=== PATIENT | male | born 1945 | race Two or more races ===

== ENCOUNTER 2019-03-10 22:23 | Inpatient (IN) | payer OTHER ==
[~2019-03-10] VITALS: Ht 167.6 cm; Wt 84.4 kg
--- NOTE | 2019-03-10 22:31 | NUR ---
"BIBPA FROM [facility] FOR [facility] ONSET AGGRESIVE BEHAVIOR HX OF DEMENTIA" PT TO BED 6, PT VERBALLY RESPONSIVE, PT ON MONITOR, VSS, PENDING MD VINCENT
--- NOTE | 2019-03-10 22:45 | NUR ---
CONDOM CATH IN PLACE. NO URINE COLELCTED AT THIS TIME
[2019-03-10 23:01] LABS: BASOPHILS % (AUTO) 0.6 % (0.0-2.0); EOSINOPHILS % (AUTO) 1.2 % (0.0-6.0); HEMATOCRIT 30 % (39-51); HEMOGLOBIN 10.3 g/dL (13.5-17.5); LYMPHOCYTES # (AUTO) 1.8 /CMM (0.8-4.8); LYMPHOCYTES % (AUTO) 26.7 % (20.0-44.0); MEAN CORPUSCULAR HGB CONC 35 g/dl (31.0-36.0); MEAN CORPUSCULAR VOLUME 90 fL (80-96); MONOCYTES # (AUTO) 0.7 /CMM (0.1-1.30); MONOCYTES % (AUTO) 9.7 % (2.0-12.0); NEUTROPHILS # (AUTO) 4.2 /CMM (1.8-8.9); NEUTROPHILS % (AUTO) 61.8 % (43.0-81.0); PLATELET COUNT (AUTO) 231 /CMM (150-450); RED BLOOD CELL COUNT(AUTO) 3.33 MIL/uL (4.5-6.0); WHITE BLOOD COUNT (AUTO) 6.8 K/uL (4.3-11.0)
[2019-03-10 23:10] LABS: CHLORIDE 103 mmol/L (98-107); GLUCOSE 182 mg/dL (74-106); POTASSIUM 3.2 mmol/L (3.5-5.1); SODIUM SERUM 136 mmol/L (136-145); UREA NITROGEN, BLOOD 23 mg/dL (7-18)
[2019-03-10 23:21] LABS: ACETAMINOPHEN 0 ug/ml (10-30); ALANINE AMINOTRANSFERASE 22 U/L (12-78); ALBUMIN 2.4 g/dL (3.4-5.0); ALCOHOL, BLOOD < 3 mg/dL (0-0); ALKALINE PHOSPHATASE 83 U/L (46-116); ASPARTATE AMINOTRANSFERASE 20 U/L (15-37); BILIRUBIN,DIRECT 0.1 mg/dL (0.0-0.2); BILIRUBIN,TOTAL 0.3 mg/dL (0.2-1.0); CALCIUM, SERUM 8.1 mg/dL (8.5-10.1); CARBON DIOXIDE 26 mmol/L (21-32); SALICYLATE 0.5 mg/dL (2.8-20.0); TOTAL PROTEIN, SERUM 5.9 g/dL (6.4-8.2)
[2019-03-11] MEDS ORDERED: POTASSIUM CHLORIDE 10 MEQ TABLET.SA PO ONE
--- NOTE | 2019-03-11 00:10 | NUR ---
rm 228
[2019-03-11] MEDS ORDERED: INSU100V11 SQ (00:29)
[2019-03-11] MEDS ORDERED: FAMO-131 PO (00:29)
[2019-03-11] MEDS ORDERED: INSU100V10 SQ (00:29)
[2019-03-11] MEDS ORDERED: CARV25TA PO (00:29)
[2019-03-11] MEDS ORDERED: HYDR-4076 PO (00:29)
[2019-03-11] MEDS ORDERED: FINA5TAB3 PO (00:29)
[2019-03-11] MEDS ORDERED: RISP1TAB7 PO (00:29)
[2019-03-11] MEDS ORDERED: ESCI5TAB PO (00:29)
[2019-03-11] MEDS ORDERED: DONE10TA11 PO (00:29)
[2019-03-11] MEDS ORDERED: MEMA5TAB PO (00:29)
--- NOTE | 2019-03-11 00:36 | NUR ---
REPORT GIVEN DA [facility] AT [facility] PT WILL BE TRANSPORTED TO [facility]
--- NOTE | 2019-03-11 00:36 | NUR ---
ROOM 220
--- NOTE | 2019-03-11 01:31 | NUR ---
PT TRANSPORTED TO [facility]IA [facility]
--- NOTE | 2019-03-11 02:29 | NUR ---
GPS/AUTO BODY CUSTOMIZER NOTES: RECEIVED 73 YR. OLD MALE ON A 5150 HOLD FOR GD. PT. IS CONFUSED. A/O X1. PT. EXPLAINED UNIT POLICY, PROCEDURES AND PROTOCOLS. PT. CAME IN TO UNIT WITHOUT BELONGINGS OR ANY CONTRABAND. SAFETY ENVIRONMENT OBSERVED AT ALL TIMES WITH CALL BOSS WITHIN REACH AND BED ALARM ON. MEDICAL AND PSYCH NOTIFIED OF PT. ADMISSION TO UNIT. FAMILY ALSO NOTIFIED OF PT. ADMISSION.
[2019-03-11] MEDS ORDERED: BLOOD SUGAR DIAGNOSTIC 1 EACH STRIP IN ONE (02:30)
[2019-03-11] MEDS ORDERED: ACETAMINOPHEN 325 MG TABLET PO PRN (02:30)
[2019-03-11] MEDS ORDERED: MAGNESIUM HYDROXIDE 30 ML UDC PO PRN (02:30)
[2019-03-11] MEDS ORDERED: MAG HYDROX/AL HYDROX/SIMETH 30 ML UDC PO PRN (02:30)
--- NOTE | 2019-03-11 02:35 | NUR ---
GPS/DIRECTOR BANKING NOTES: ACCUCHECK DONE. BS NOTED 139.
[2019-03-11 08:00] VITALS: BP_SYST 134; BP_SYST 141; BP_DIAS 59; BP_DIAS 67
--- NOTE | 2019-03-11 09:31 | NUR ---
SW contacted pts Annette [phone] who provided SW with collateral information and SW also discussed treatment and discharge planning. Per , she stated that she is unable to take care of pt with his aggressive behavior and would like an alternative placement option. SW explained that due to pts current HMO insurance ([employer]) SW is unable to provide SNF placement as pts insurance does not cover. SW encouraged pts to dis-enroll pt from current insurance and apply for straight Medicare so pt is able to receive more services. agreed and stated she would begin looking into disenrollment. stated she would pick pt up and transport home when stable for discharge.
--- NOTE | 2019-03-11 11:00 | NUR ---
RN NOTE: DR CARRINGTON CAME TO THE UNIT TODAY FOR ROUNDS. INFORMED HIM OF THE NEW ADMISSION AND FOR MED RECON. Addendum: 03/11/19 at 1915 by YEISON JACK RN CONTACTED EPIC DUE TO MED RECON NOT BEING COMPLETE. DR MELVA ROSALES. LIME SLUDGE KILN OPERATOR RN AWARE FOR FOLLOW UP.
--- NOTE | 2019-03-11 11:15 | NUR ---
UR NOTE: SW received email from house coordinator providing SW with the following information. [id number] Tracking Number: [id number] [facility]: Jn [phone] I faxed over clinicals to start the authorization process.
--- NOTE | 2019-03-11 12:56 | NUR ---
INITIAL DISCHARGE PLAN: Per Annette [phone] pt will return home to [address] [place] [address]. SW will help form a safe and proper discharge in collaboration with .
[2019-03-11] MEDS: risperiDONE 1 MG TABLET PO SCH ×2 (13:08→16:46)
[2019-03-11] MEDS: ESCITALOPRAM OXALATE (10 MG) 10 MG TABLET PO SCH (13:08)
--- NOTE | 2019-03-11 14:00 | NUR ---
RN NOTE: PATIENT HAD SPIT OUT LEXAPRO AND RISPERDAL EARLIER. HAD TO PULL ANOTHER ONE OF EACH MEDICATION OUT THE OMNICELL TO ADMINISTER TO THE PATIENT.
--- NOTE | 2019-03-11 15:06 | NUR ---
GROUP NOTE: Pt unable to participate on group due to Dementia with behavior disturbance. pt is only alert to himself.
[2019-03-11 20:00] VITALS: BP 139/74
[2019-03-11] MEDS ORDERED: hydrALAZINE HCL 25 MG TABLET PO PRN (20:00)
[2019-03-11] MEDS ORDERED: DEXTROSE 50%-WATER 50 ML DISP.SYRIN IV PRN (20:00)
[2019-03-11] MEDS: CARVEDILOL 12.5 MG TABLET PO SCH (21:25)
[2019-03-11] MEDS: INSULIN REGULAR, HUMAN 100 UNIT/ML 3 ML VIAL SQ PRN (22:33)
[2019-03-11] MEDS: BLOOD SUGAR DIAGNOSTIC 1 EACH STRIP IN SCH (22:34)
[2019-03-11] MEDS: INSULIN GLARGINE, 100 UNIT/ML CARTRIDGE SQ SCH (22:35)
[2019-03-11] MEDS: TEMAZEPAM 7.5 MG CAPSULE PO PRN (23:20)
[2019-03-12] MEDS: INSULIN REGULAR, HUMAN 100 UNIT/ML 3 ML VIAL SQ PRN ×5 (07:50→21:39)
[2019-03-12 08:00] VITALS: BP 129/90
[2019-03-12] MEDS: ESCITALOPRAM OXALATE (10 MG) 10 MG TABLET PO SCH (08:06)
[2019-03-12] MEDS: BLOOD SUGAR DIAGNOSTIC 1 EACH STRIP IN SCH ×4 (08:06→21:33)
[2019-03-12] MEDS: risperiDONE 1 MG TABLET PO SCH ×2 (08:06→16:33)
[2019-03-12] MEDS: CARVEDILOL 12.5 MG TABLET PO SCH ×2 (08:07→21:25)
[2019-03-12] MEDS: MEMANTINE HCL 5 MG TABLET PO SCH ×2 (08:08→16:33)
[2019-03-12] MEDS: FAMOTIDINE (20 MG) 20 MG TABLET PO SCH ×2 (08:09→16:33)
[2019-03-12] MEDS: DONEPEZIL 5 MG TABLET PO SCH (08:09)
[2019-03-12] MEDS: FINASTERIDE (5 MG) 5 MG TABLET PO SCH (08:09)
[2019-03-12 08:17] LABS: BASOPHILS % (AUTO) 0.6 % (0.0-2.0); EOSINOPHILS % (AUTO) 1.5 % (0.0-6.0); HEMATOCRIT 31 % (39-51); HEMOGLOBIN 10.8 g/dL (13.5-17.5); LYMPHOCYTES # (AUTO) 1.1 /CMM (0.8-4.8); LYMPHOCYTES % (AUTO) 17.9 % (20.0-44.0); MEAN CORPUSCULAR HGB CONC 34 g/dl (31.0-36.0); MEAN CORPUSCULAR VOLUME 89 fL (80-96); MONOCYTES # (AUTO) 0.5 /CMM (0.1-1.30); MONOCYTES % (AUTO) 8.5 % (2.0-12.0); NEUTROPHILS # (AUTO) 4.3 /CMM (1.8-8.9); NEUTROPHILS % (AUTO) 71.5 % (43.0-81.0); PLATELET COUNT (AUTO) 235 /CMM (150-450); RED BLOOD CELL COUNT(AUTO) 3.51 MIL/uL (4.5-6.0); WHITE BLOOD COUNT (AUTO) 6.1 K/uL (4.3-11.0)
[2019-03-12 08:28] LABS: ALANINE AMINOTRANSFERASE 26 U/L (12-78); ALBUMIN 2.5 g/dL (3.4-5.0); ALKALINE PHOSPHATASE 80 U/L (46-116); ASPARTATE AMINOTRANSFERASE 18 U/L (15-37); BILIRUBIN,TOTAL 0.4 mg/dL (0.2-1.0); CARBON DIOXIDE 25 mmol/L (21-32); CHLORIDE 103 mmol/L (98-107); CREATININE 1.7 mg/dL (0.6-1.3); GLUCOSE 240 mg/dL (74-106); MAGNESIUM 1.6 mg/dL (1.8-2.4); PHOSPHORUS 2.9 mg/dL (2.5-4.9); POTASSIUM 3.3 mmol/L (3.5-5.1); SODIUM SERUM 138 mmol/L (136-145); TOTAL PROTEIN, SERUM 6.2 g/dL (6.4-8.2); UREA NITROGEN, BLOOD 22 mg/dL (7-18)
[2019-03-12 08:30] LABS: CHOLESTEROL 183 mg/dL (<200); CREATINE KINASE, TOTAL 166 U/L (39-308); HDL CHOLESTEROL 30 mg/dL (40-60); LDL 122 mg/dL (0-99); TRIGLYCERIDES 144 mg/dL (30-150)
[2019-03-12] MEDS ORDERED: CARVEDILOL 25 MG TABLET PO SCH (09:00)
[2019-03-12] MEDS ORDERED: POTASSIUM CHLORIDE 20 MEQ TAB.PRT.SR PO SCH (10:00)
[2019-03-12] MEDS ORDERED: MAGNESIUM OXIDE 400 MG TABLET PO ONE (10:30)
[2019-03-12 16:07] VITALS: BP 94/58
--- NOTE | 2019-03-12 18:17 | NUR ---
GPS/RN INSULIN COVERAGE NOT GIVEN PT REFUSED TO EAT DINNER. ENCOURAGED TO EAT. TRAY STILL AVAILABLE IN THE UNIT IN CASE PT CHANGES HIS MIND
--- NOTE | 2019-03-12 18:45 | NUR ---
GPS/RN PT ATE HALF OF SANDWICH AND HAD SOME JUICE. INSULIN COVERAGE GIVEN
[2019-03-12 20:00] VITALS: BP 117/61
[2019-03-12] MEDS: INSULIN GLARGINE, 100 UNIT/ML CARTRIDGE SQ SCH (21:40)
[2019-03-13] MEDS: TEMAZEPAM 7.5 MG CAPSULE PO PRN ×2 (01:28→21:29)
--- NOTE | 2019-03-13 06:09 | NUR ---
GPS RN NOTE: PATIENT NOTED WITH HEMATURIA, SMALL AMOUNT, PATIENT HAS A HISTORY OF TURP. NOTIFIED HISTOLOGY AIDE MELVA WITH ORDER OF URINE CULTURE VIA IN AND OUT NOTED AND CARRIED OUT. PATIENT TOLERATED THE PROCEDURE WITH NO COMPLICATION AND S/S OF PAIN AND DISCOMFORT. WILL CONTINUE TO MONITOR
[2019-03-13 07:31] LABS: BILIRUBIN,URINE NEGATIVE (NEGATIVE); BLOOD, URINE 3+ Ery/uL (NEGATIVE); COLOR,URINE AMBER (YELLOW); KETONES,URINE NEGATIVE (NEGATIVE); LEUKOCYTE ESTERASE ,URINE TRACE (NEGATIVE); NITRITE, URINE NEGATIVE (NEGATIVE); PROTEIN,URINE 2+ mg/dl (NEGATIVE); UGLUCOSE 1+ mg/dL (NEGATIVE); UROBILINOGEN,URINE 0.2 EU/dL (0.2)
[2019-03-13 07:43] LABS: APPEARANCE,URINE SLIGHTLY CLOUDY (CLEAR)
[2019-03-13 07:57] LABS: CALCIUM, SERUM 8.2 mg/dL (8.5-10.1); CARBON DIOXIDE 27 mmol/L (21-32); CHLORIDE 102 mmol/L (98-107); CREATININE 1.9 mg/dL (0.6-1.3); GLUCOSE 182 mg/dL (74-106); POTASSIUM 3.1 mmol/L (3.5-5.1); SODIUM SERUM 138 mmol/L (136-145); UREA NITROGEN, BLOOD 25 mg/dL (7-18)
[2019-03-13 08:00] VITALS: BP 100/57
[2019-03-13] MEDS: risperiDONE 1 MG TABLET PO SCH ×2 (08:04→16:02)
[2019-03-13] MEDS: ESCITALOPRAM OXALATE (10 MG) 10 MG TABLET PO SCH (08:04)
[2019-03-13] MEDS: BLOOD SUGAR DIAGNOSTIC 1 EACH STRIP IN SCH ×4 (08:04→21:29)
[2019-03-13] MEDS: MEMANTINE HCL 5 MG TABLET PO SCH ×2 (08:04→16:02)
[2019-03-13] MEDS: FAMOTIDINE (20 MG) 20 MG TABLET PO SCH ×2 (08:04→16:01)
[2019-03-13] MEDS: FINASTERIDE (5 MG) 5 MG TABLET PO SCH (08:04)
[2019-03-13] MEDS: CARVEDILOL 12.5 MG TABLET PO SCH ×2 (08:05→21:00)
[2019-03-13] MEDS: INSULIN REGULAR, HUMAN 100 UNIT/ML 3 ML VIAL SQ PRN ×3 (08:07→18:32)
[2019-03-13 08:20] LABS: CREATININE, URINE 98.7 MG/DL (30.0-125.0); URINE TOTAL PROTEIN 216.3 mg/dL (0-11.9)
[2019-03-13 08:24] LABS: BACTERIA,URINE Few /HPF (None Seen); RBC,URINE 81-100 /HPF (0-2); SQUAMOUS EPITHELIAL CELL,UR Moderate /HPF (None Seen)
[2019-03-13 08:25] LABS: URINE AMORPHOUS URATE Moderate /HPF (None Seen)
[2019-03-13] MEDS: DONEPEZIL 5 MG TABLET PO SCH (08:26)
[2019-03-13 09:36] LABS: EOSINOPHIL,URINE None Seen
[2019-03-13] MEDS ORDERED: POTASSIUM CHLORIDE 10 MEQ TABLET.SA PO SCH (10:30)
[2019-03-13] MEDS: POTASSIUM CHLORIDE 10 MEQ TABLET.SA PO SCH ×3 (12:57→16:00)
[2019-03-13] MEDS: clonazePAM 0.5 MG TABLET PO PRN (15:01)
[2019-03-13 16:00] VITALS: BP 113/50
[2019-03-13 20:13] VITALS: BP 94/46
[2019-03-13] MEDS: INSULIN GLARGINE, 100 UNIT/ML CARTRIDGE SQ SCH (21:34)
[2019-03-14] MEDS: BLOOD SUGAR DIAGNOSTIC 1 EACH STRIP IN SCH ×4 (07:42→22:17)
[2019-03-14 08:00] VITALS: BP 114/56
[2019-03-14] MEDS: FAMOTIDINE (20 MG) 20 MG TABLET PO SCH ×2 (08:37→16:05)
[2019-03-14] MEDS: MEMANTINE HCL 5 MG TABLET PO SCH ×2 (08:37→16:05)
[2019-03-14] MEDS: risperiDONE 1 MG TABLET PO SCH ×2 (08:37→16:05)
[2019-03-14] MEDS: DONEPEZIL 5 MG TABLET PO SCH (08:37)
[2019-03-14] MEDS: FINASTERIDE (5 MG) 5 MG TABLET PO SCH (08:37)
[2019-03-14] MEDS: ESCITALOPRAM OXALATE (10 MG) 10 MG TABLET PO SCH (08:37)
[2019-03-14] MEDS: CARVEDILOL 12.5 MG TABLET PO SCH ×2 (08:38→21:38)
[2019-03-14] MEDS: INSULIN REGULAR, HUMAN 100 UNIT/ML 3 ML VIAL SQ PRN ×3 (11:57→22:21)
[2019-03-14 12:10] LABS: *SPE A/G RATIO 0.8 (0.7-1.7); *SPE ALBUMIN 2.4 g/dL (2.9-4.4); *SPE ALPHA-1-GLOBULIN 0.3 g/dL (0.0-0.4); *SPE ALPHA-2-GLOBULIN 0.9 g/dL (0.4-1.0); *SPE BETA GLOBULIN 0.9 g/dL (0.7-1.3); *SPE GLOBULIN, TOTAL 3.1 g/dL (2.2-3.9); *SPE M-SPIKE Not Observed g/dL (Not Observed)
--- NOTE | 2019-03-14 15:55 | NUR ---
Group Note: SW encouraged the pt to participate in group therapy discussing discharge planning but the pt is cognitively impaired and is only alert to himself.
[2019-03-14 16:00] VITALS: BP 152/72
[2019-03-14 19:57] VITALS: BP 125/65
[2019-03-14] MEDS: TEMAZEPAM 7.5 MG CAPSULE PO PRN (21:37)
[2019-03-14] MEDS: INSULIN GLARGINE, 100 UNIT/ML CARTRIDGE SQ SCH (22:23)
[2019-03-15] MEDS: BLOOD SUGAR DIAGNOSTIC 1 EACH STRIP IN SCH ×4 (07:51→21:40)
[2019-03-15 08:00] VITALS: BP 150/87
[2019-03-15] MEDS: INSULIN REGULAR, HUMAN 100 UNIT/ML 3 ML VIAL SQ PRN ×4 (08:01→22:08)
[2019-03-15 08:07] LABS: BASOPHILS % (AUTO) 0.4 % (0.0-2.0); EOSINOPHILS % (AUTO) 0.8 % (0.0-6.0); HEMATOCRIT 33 % (39-51); HEMOGLOBIN 11.3 g/dL (13.5-17.5); LYMPHOCYTES # (AUTO) 1.7 /CMM (0.8-4.8); LYMPHOCYTES % (AUTO) 19.4 % (20.0-44.0); MEAN CORPUSCULAR HGB CONC 34 g/dl (31.0-36.0); MEAN CORPUSCULAR VOLUME 91 fL (80-96); MONOCYTES # (AUTO) 0.8 /CMM (0.1-1.30); MONOCYTES % (AUTO) 8.8 % (2.0-12.0); NEUTROPHILS # (AUTO) 6.2 /CMM (1.8-8.9); NEUTROPHILS % (AUTO) 70.6 % (43.0-81.0); PLATELET COUNT (AUTO) 251 /CMM (150-450); RED BLOOD CELL COUNT(AUTO) 3.68 MIL/uL (4.5-6.0); WHITE BLOOD COUNT (AUTO) 8.8 K/uL (4.3-11.0)
[2019-03-15 08:25] LABS: CALCIUM, SERUM 8.4 mg/dL (8.5-10.1); CARBON DIOXIDE 25 mmol/L (21-32); CHLORIDE 102 mmol/L (98-107); CREATININE 2.1 mg/dL (0.6-1.3); GLUCOSE 183 mg/dL (74-106); PHOSPHORUS 3.6 mg/dL (2.5-4.9); SODIUM SERUM 136 mmol/L (136-145); UREA NITROGEN, BLOOD 32 mg/dL (7-18)
[2019-03-15] MEDS: ESCITALOPRAM OXALATE (10 MG) 10 MG TABLET PO SCH (09:23)
[2019-03-15] MEDS: FAMOTIDINE (20 MG) 20 MG TABLET PO SCH ×2 (09:23→17:09)
[2019-03-15] MEDS: risperiDONE 1 MG TABLET PO SCH ×2 (09:23→17:09)
[2019-03-15] MEDS: FINASTERIDE (5 MG) 5 MG TABLET PO SCH (09:23)
[2019-03-15] MEDS: DONEPEZIL 5 MG TABLET PO SCH (09:23)
[2019-03-15] MEDS: MEMANTINE HCL 5 MG TABLET PO SCH ×2 (09:23→17:09)
[2019-03-15] MEDS: CARVEDILOL 12.5 MG TABLET PO SCH ×2 (09:24→21:38)
--- NOTE | 2019-03-15 09:29 | NUR ---
UR NOTE: GILLES faxed clinicals to Valentine, case finishing machine adjuster at [facility] [phone] ex:[phone] for review.
[2019-03-15 14:07] LABS: PTH, INTACT 64 pg/mL (15-65)
--- NOTE | 2019-03-15 14:38 | NUR ---
UR NOTE: SW received a call from Genet correctional counselor/case manager at [facility] [phone] ex:[phone] stating that she would be in charge of pts discharge planning.
[2019-03-15 16:00] VITALS: BP 144/69
--- NOTE | 2019-03-15 16:07 | NUR ---
UR NOTE: GILLES contacted Genet, caser at [facility] [phone] [phone] and informed her pt will be discharged tomorrow 03/16/19. Genet stated that due to pts diagnosis of Dementia pt will not be scheduled for a follow up appointment with a psychiatrist and instead will only be scheduled for a medication management appointment.
--- NOTE | 2019-03-15 16:10 | NUR ---
GILLES contacted pts Annette [phone] and informed her pt will be discharged tomorrow 03/15/19 stated she needed a hospital bed and asked SW to get her one, GILLES explained that she was unable to do that for her as hospital equipment needs to be authorized by pts insurance. understood and stated she would pick pt up at 1000am.
[2019-03-15] MEDS: clonazePAM 0.5 MG TABLET PO PRN (20:40)
[2019-03-15 20:52] VITALS: BP 131/51
[2019-03-15] MEDS: TEMAZEPAM 7.5 MG CAPSULE PO PRN (21:39)
[2019-03-15] MEDS: INSULIN GLARGINE, 100 UNIT/ML CARTRIDGE SQ SCH (22:11)
[2019-03-16 08:00] VITALS: BP 135/52
[2019-03-16] MEDS: BLOOD SUGAR DIAGNOSTIC 1 EACH STRIP IN SCH (08:06)
[2019-03-16] MEDS ORDERED: ESCITALOPRAM OXALATE (10 MG) 10 MG TABLET PO SCH (09:00)
[2019-03-16] MEDS: FINASTERIDE (5 MG) 5 MG TABLET PO SCH (09:41)
[2019-03-16] MEDS: DONEPEZIL 5 MG TABLET PO SCH (09:41)
[2019-03-16] MEDS: risperiDONE 1 MG TABLET PO SCH (09:41)
[2019-03-16 09:42] VITALS: BP 135/52
[2019-03-16] MEDS: FAMOTIDINE (20 MG) 20 MG TABLET PO SCH (09:42)
[2019-03-16] MEDS: MEMANTINE HCL 5 MG TABLET PO SCH (09:42)
[2019-03-16] MEDS: CARVEDILOL 12.5 MG TABLET PO SCH (09:42)
--- NOTE | 2019-03-16 10:18 | NUR ---
DISCHARGE PLAN: Pt will be discharged at 11:00am via private vehicle home to [address] [place] [id number]. Pts Annette [phone] will pick pt up and transport home. Pts mood is confused and disorganized with congruent affect. Pt unable to engage in conversation due to Dementia. Per Genet case loader operator with at [facility] [phone] pt does not require a follow up with a psychiatrist as pt has Dementia so she did not provide SW with a psychiatrist follow up. Pt however, does have a follow up appointment with [facility] [place] [address] [place] [address] for medication management on 03/22/19 at 9:15am. The multidisciplinary exit care form was done, printed, signed, and given to the patient.
--- NOTE | 2019-03-16 12:05 | NUR ---
CHAINSTITCH ZIPPER SETTER NOTED PATIENT IS A 73 YEAR OLD MALE, DISCHARGED TO HOME [address] [place] [address]. PATIENT IS IN STABLE CONDITION, VITAL SIGNS STABLE. NO ACUTE DISTRESS NOTED. NO COMPLAINTS. COMPLIANT WITH MEDICATION MANAGEMENT. COOPERATIVE WITH PLAN OF CARE. PSYCHIATRIC TREATMENT PLANS MET. MEDICAL TREATMENT PLANS DEFERRED FOR CONTINUAL MONITORING. DENIES SI/HI VAH AT THE TIME OF DISCHARGE. SKIN IS INTACT. EDUCATED PATIENT ABOUT AFTERCARE WITH COPY PROVIDED. RETURNED PERSONAL BELONGINGS TO PATIENT. MEDICATIONS RECONCILED WITH DR WEI AND DR VENANCIO NOLEN ALONG WITH PSYCHIATRIC DISCHARGE ORDERS. DISCHARGE PAPERWORK SIGNED. FOR FOLLOW UP WITH PSYCHIATRIST AND MANAGER CARDIOLOGY WITHIN 1 WEEK, [facility] [address], [place] [address]. PATIENT LEFT THE [facility] AT 1205 PM VIA PRIVATE CAR WITH MIKA [phone] AND SON.
--- NOTE | 2019-03-16 12:19 | NUR ---
UR NOTE: GILLES faxed discharge clinicals to Valentine, residential case manager at [facility] [phone] ex:[phone] .
== END 2019-03-16 12:10 | disposition home or self-care (01) | DRG 885 ==
LOC: ER 22:29 → GPS 03-11 00:51
PROVIDERS: ADMIT Psychiatry & Neurology Psychiatry; ATTEND Internal Medicine
DX: F33.3 Major depressive disorder, recurrent, severe with psychotic symptoms (principal); N18.9 Chronic kidney disease, unspecified; N17.0 Acute kidney failure with tubular necrosis; F23 Brief psychotic disorder; F41.9 Anxiety disorder, unspecified; E11.22 Type 2 diabetes mellitus with diabetic chronic kidney disease; I12.9 Hypertensive chronic kidney disease with stage 1 through stage 4 chronic kidney disease, or unspecified chronic kidney disease; I25.10 Atherosclerotic heart disease of native coronary artery without angina pectoris; F03.90 Unspecified dementia, unspecified severity, without behavioral disturbance, psychotic disturbance, mood disturbance, and anxiety; N40.0 Benign prostatic hyperplasia without lower urinary tract symptoms; Z95.1 Presence of aortocoronary bypass graft; E78.5 Hyperlipidemia, unspecified
CPT/HCPCS: 36415; 76770-TC; 80048-TC; 80053-TC; 80061-TC; 80076-TC; 81000-TC; 82550-TC; 82570-TC; 82962-TC; 83735-TC; 83970; 84100-TC; 84155; 84155-TC; 84165; 84300-TC; 85025-TC; 87081-TC; 87086-TC; 97116-TC; 97530-TC; A4349; G0480; J1815